=== PATIENT | male | born 1960 | race African-American/Black ===

== ENCOUNTER 2020-01-30 22:32 | Inpatient (IN) | payer SELFPAY ==
[~2020-01-30] VITALS: Ht 152.4 cm; Wt 84.4 kg
[2020-01-30] MEDS ORDERED: FUROSEMIDE 40MG/4ML VIAL IV ONE (22:45)
[2020-01-30] MEDS ORDERED: NITROGLYCERIN 50MG PREMIX 250 ML IV ONE (23:01)
[2020-01-30] MEDS: NITROGLYCERIN 0.4MG TABLET SL SL PRN ×3 (23:04→23:17)
[2020-01-30] MEDS ORDERED: ONDANSETRON HCL 4MG/2ML INJ IV STA (23:14)
[2020-01-30] MEDS ORDERED: MORPHINE SULFATE 4 MG/ML CPJ (NOT FOR IM USE) IV STA (23:14)
[2020-01-30 23:25] LABS: BASOPHILS % 0.7 % (0.0-2.0); EOSINOPHILS % 1.1 % (0.0-5.0); HEMATOCRIT. 52.2 % (42.0-52.0); HEMOGLOBIN. 16.5 g/dL (14.0-18.0); LYMPHOCYTES % 17.3 % (20.0-50.0); MEAN CORPUSCULAR HEMOGLOBIN 26.9 pg (28.0-32.0); MEAN CORPUSCULAR VOLUME 85.1 fL (80.0-94.0); MEAN PLATELET VOLUME 8.9 fl (7.4-10.4); MONOCYTES % 9.9 % (2.0-8.0); PLATELET 166 x1000/uL (130-400); RED BLOOD CELL COUNT 6.14 mill/uL (4.7-6.1)
[2020-01-30 23:29] LABS: INR 1.5; PROTHROMBIN TIME 16.5 sec (9.6-11.0)
[2020-01-31] VITALS (11 sets, daily range): BP systolic 116–134; BP diastolic 32–99
[2020-01-31 00:18] LABS: *AMPHETAMINES SCREEN URINE NEGATIVE (NEGATIVE); *BARBITURATES SCREEN URINE NEGATIVE (NEGATIVE); *BENZODIAZEPINES SCREEN URINE NEGATIVE (NEGATIVE)
[2020-01-31 00:19] LABS: *COCAINE SCREEN URINE NEGATIVE (NEGATIVE); CANNABINOID URINE SCREEN NEGATIVE (NEGATIVE); METHADONE URINE SCREEN NEGATIVE (NEGATIVE); OPIATES URINE SCREEN NEGATIVE (NEGATIVE); PHENCYCLIDINE URINE SCREEN NEGATIVE (NEGATIVE)
[2020-01-31 01:04] LABS: CHLORIDE 107 mEq/L (98-107)
[2020-01-31] MEDS ORDERED: ASPIRIN 325MG EC TABLET PO ONE (02:45)
[2020-01-31] MEDS ORDERED: CLONIDINE 0.1MG TABLET PO PRN (09:30)
[2020-01-31] MEDS ORDERED: CEFTRIAXONE 1 G PREMIX 50 ML IV SCH (09:30)
[2020-01-31] MEDS ORDERED: ENOXAPARIN 40MG/0.4ML SYR SUBCUT SCH ×2 (09:45→11:15)
[2020-01-31] MEDS: BENZONATATE 100MG CAPSULE PO PRN ×2 (10:56→17:18)
[2020-01-31] MEDS: AZITHROMYCIN 500 MG TABLET PO SCH (10:56)
[2020-01-31] MEDS: FUROSEMIDE 40MG/4ML VIAL IVP SCH ×2 (11:00→17:16)
[2020-01-31] MEDS: LEVOFLOXACIN 500MG PREMIX 100 ML IV SCH (11:00)
[2020-01-31 11:15] LABS: HEPATITIS B SURFACE ANTIGEN NEGATIVE
[2020-01-31 11:44] LABS: HEPATITIS A AB IGM NEGATIVE (NEGATIVE)
[2020-01-31] MEDS: HYDROCODONE/ACETAMINOPHEN 5/325MG TABLET PO PRN ×2 (11:46→17:17)
[2020-01-31] MEDS: CLONIDINE 0.1MG TABLET PO SCH ×2 (14:00→17:18)
[2020-01-31] MEDS: ENOXAPARIN 80MG/0.8ML SYR SUBCUT SCH (23:01)
[2020-02-01] VITALS: BP 128/83
[2020-02-01 04:00] VITALS: BP 107/78
[2020-02-01] MEDS: CLONIDINE 0.1MG TABLET PO SCH (06:00)
[2020-02-01] MEDS: FUROSEMIDE 40MG/4ML VIAL IVP SCH (06:37)
[2020-02-01 06:56] LABS: HEMATOCRIT. 42.5 % (42.0-52.0); MEAN CORPUSCULAR HEMOGLOBIN 27.1 pg (28.0-32.0); MEAN CORPUSCULAR VOLUME 82.5 fL (80.0-94.0); MEAN PLATELET VOLUME 8.8 fl (7.4-10.4); PLATELET 164 x1000/uL (130-400); RED BLOOD CELL COUNT 5.15 mill/uL (4.7-6.1); RED CELL DISTRIBUTION WIDTH 16.2 % (11.6-14.6)
[2020-02-01 08:00] VITALS: BP 96/65
[2020-02-01] MEDS ORDERED: ASPIRIN 81MG TABLET PO SCH (09:00)
[2020-02-01] MEDS ORDERED: ENOXAPARIN 40MG/0.4ML SYR SUBCUT SCH (09:00)
[2020-02-01] MEDS: AZITHROMYCIN 500 MG TABLET PO SCH (09:15)
[2020-02-01] MEDS: ENOXAPARIN 80MG/0.8ML SYR SUBCUT SCH ×2 (09:16→21:46)
[2020-02-01 09:25] LABS: PLATELET ESTIMATE NORMAL
[2020-02-01 12:00] VITALS: BP 105/77
[2020-02-01] MEDS: LEVOFLOXACIN 500MG PREMIX 100 ML IV SCH (12:59)
[2020-02-01] MEDS ORDERED: IPRATROPIUM/ALBUTEROL 0.5-3(2.5)MG/3ML NEB HHN PRN (15:45)
[2020-02-01 16:00] VITALS: BP 113/86
[2020-02-01 20:00] VITALS: BP 110/89
[2020-02-02] VITALS: BP 108/84
[2020-02-02 04:00] VITALS: BP 102/79
[2020-02-02 06:50] LABS: HEMATOCRIT. 41.8 % (42.0-52.0); HEMOGLOBIN. 13.8 g/dL (14.0-18.0); MEAN CORPUSCULAR HEMOGLOBIN 26.8 pg (28.0-32.0); MEAN CORPUSCULAR VOLUME 81.4 fL (80.0-94.0); MEAN PLATELET VOLUME 8.9 fl (7.4-10.4); PLATELET 161 x1000/uL (130-400); RED BLOOD CELL COUNT 5.14 mill/uL (4.7-6.1); RED CELL DISTRIBUTION WIDTH 16.3 % (11.6-14.6)
[2020-02-02 07:04] LABS: CHLORIDE 103 mEq/L (98-107)
[2020-02-02 08:00] VITALS: BP 126/84
[2020-02-02] MEDS ORDERED: FUROSEMIDE 40MG/4ML VIAL IVP SCH (08:00)
[2020-02-02] MEDS ORDERED: AMLODIPINE 2.5MG TABLET PO SCH (09:00)
[2020-02-02 11:04] LABS: PLATELET ESTIMATE NORMAL
[2020-02-02 11:56] VITALS: BP 118/79
[2020-02-02] MEDS ORDERED: POTASSIUM CHLORIDE 20MEQ TABLET SR PO NR (12:00)
[2020-02-02] MEDS: LEVOFLOXACIN 500MG PREMIX 100 ML IV SCH (12:33)
[2020-02-02] MEDS: ENOXAPARIN 80MG/0.8ML SYR SUBCUT SCH ×2 (12:33→21:47)
[2020-02-02] MEDS: SPIRONOLACTONE 25MG TABLET PO SCH (15:22)
[2020-02-02 16:00] VITALS: BP 103/82
[2020-02-02] MEDS: FUROSEMIDE 40MG/4ML VIAL IVP SCH (17:30)
[2020-02-02] MEDS: CARVEDILOL 3.125 MG TABLET PO SCH (21:46)
[2020-02-02 21:52] VITALS: BP 110/85
[2020-02-02] MEDS ORDERED: CEFAZOLIN 2,000 MG in DEXT 5% WATER 100 ML IV SCH (22:30)
[2020-02-02] MEDS ORDERED: DIPHENHYDRAMINE 50MG/ML VIAL IV PRN (22:30)
[2020-02-03] VITALS: BP 115/87
[2020-02-03 04:00] VITALS: BP 118/79
[2020-02-03] MEDS: FUROSEMIDE 40MG/4ML VIAL IVP SCH ×2 (06:38→17:00)
[2020-02-03 06:42] LABS: HEMATOCRIT. 38.6 % (42.0-52.0); HEMOGLOBIN. 12.9 g/dL (14.0-18.0); MEAN CORPUSCULAR HEMOGLOBIN 26.8 pg (28.0-32.0); MEAN CORPUSCULAR VOLUME 80.3 fL (80.0-94.0); PLATELET 162 x1000/uL (130-400); RED BLOOD CELL COUNT 4.81 mill/uL (4.7-6.1); RED CELL DISTRIBUTION WIDTH 16.3 % (11.6-14.6)
[2020-02-03 06:44] LABS: CHLORIDE 101 mEq/L (98-107)
[2020-02-03 08:25] VITALS: BP 114/85
[2020-02-03] MEDS: ENOXAPARIN 80MG/0.8ML SYR SUBCUT SCH ×2 (08:27→21:34)
[2020-02-03] MEDS: CARVEDILOL 3.125 MG TABLET PO SCH ×2 (08:28→21:36)
[2020-02-03] MEDS: LISINOPRIL 5MG TABLET PO SCH (08:28)
[2020-02-03] MEDS: SPIRONOLACTONE 25MG TABLET PO SCH (08:28)
[2020-02-03] MEDS ORDERED: POTASSIUM CHLORIDE 20MEQ TABLET SR PO NR (10:00)
[2020-02-03] MEDS ORDERED: LEVOFLOXACIN 500MG TABLET PO SCH (11:00)
[2020-02-03] MEDS: LEVOFLOXACIN 500MG TABLET PO SCH (11:04)
[2020-02-03 12:00] VITALS: BP 114/86
[2020-02-03 14:11] LABS: NUCLEATED RED BLOOD CELLS 2 /100 WBC; PLATELET ESTIMATE NORMAL
[2020-02-03 16:00] VITALS: BP 101/81
[2020-02-03] MEDS: HYDROCODONE/ACETAMINOPHEN 5/325MG TABLET PO PRN (17:11)
[2020-02-03 20:00] VITALS: BP 115/85
[2020-02-04] VITALS: BP 103/80
[2020-02-04 03:55] VITALS: BP 109/83
[2020-02-04 06:25] VITALS: BP_SYST 102; BP_SYST 111; BP_DIAS 75; BP_DIAS 82
[2020-02-04] MEDS: FUROSEMIDE 40MG/4ML VIAL IVP SCH (06:29)
[2020-02-04 06:33] LABS: HEMATOCRIT. 39.9 % (42.0-52.0); HEMOGLOBIN. 13.3 g/dL (14.0-18.0); MEAN CORPUSCULAR HEMOGLOBIN 26.7 pg (28.0-32.0); MEAN CORPUSCULAR VOLUME 80.1 fL (80.0-94.0); MEAN PLATELET VOLUME 8.8 fl (7.4-10.4); PLATELET 184 x1000/uL (130-400); RED BLOOD CELL COUNT 4.98 mill/uL (4.7-6.1)
[2020-02-04 07:30] LABS: CHLORIDE 98 mEq/L (98-107)
[2020-02-04 08:00] VITALS: BP 103/77
[2020-02-04] MEDS: ENOXAPARIN 80MG/0.8ML SYR SUBCUT SCH (08:30)
[2020-02-04] MEDS: LISINOPRIL 5MG TABLET PO SCH (08:31)
[2020-02-04] MEDS: CARVEDILOL 3.125 MG TABLET PO SCH (08:32)
[2020-02-04] MEDS: SPIRONOLACTONE 25MG TABLET PO SCH (08:32)
[2020-02-04] MEDS ORDERED: POTASSIUM CHLORIDE 10MEQ TABLET SR PO SCH (10:30)
[2020-02-04] MEDS: LEVOFLOXACIN 500MG TABLET PO SCH (11:11)
[2020-02-04 12:00] VITALS: BP 119/91
[2020-02-04] MEDS ORDERED: ALBU18HF2 IH (12:02)
[2020-02-04] MEDS ORDERED: COR3 PO (12:02)
[2020-02-04] MEDS ORDERED: LISI-186 PO (12:02)
[2020-02-04] MEDS ORDERED: FURO40TA5 PO (12:02)
[2020-02-04] MEDS ORDERED: KDUR10 PO (12:02)
[2020-02-04] MEDS ORDERED: SPIR25TA PO (12:02)
[2020-02-04 16:36] LABS: NUCLEATED RED BLOOD CELLS 3 /100 WBC; PLATELET ESTIMATE NORMAL
[2020-02-04 17:46] VITALS: BP 88/68
[2020-02-04] MEDS ORDERED: FUROSEMIDE 40MG TABLET PO SCH (21:00)
[2020-02-05] MEDS ORDERED: ENOXAPARIN 40MG/0.4ML SYR SUBCUT SCH (09:00)
== END 2020-02-04 22:00 | disposition home or self-care (01) | DRG 720 ==
LOC: ER 22:32 → MICUSO 01-31 01:19 → EDBEDREQ 01-31 01:24 → EDBEDREQTM 01-31 01:24 → EDBEDREQDT 01-31 01:24 → EDBEDREQSVC 01-31 01:24 → ENRESERV 01-31 07:36 → 5WST 01-31 20:00
PROVIDERS: ADMIT Internal Medicine Nephrology; ATTEND Internal Medicine Nephrology
DX: A41.9 Sepsis, unspecified organism (principal); J96.01 Acute respiratory failure with hypoxia; E43 Unspecified severe protein-calorie malnutrition; I50.41 Acute combined systolic (congestive) and diastolic (congestive) heart failure; E87.2 Acidosis; D68.9 Coagulation defect, unspecified; J18.9 Pneumonia, unspecified organism; I11.0 Hypertensive heart disease with heart failure; I27.81 Cor pulmonale (chronic); I42.9 Cardiomyopathy, unspecified; B19.20 Unspecified viral hepatitis C without hepatic coma; F14.90 Cocaine use, unspecified, uncomplicated; F17.210 Nicotine dependence, cigarettes, uncomplicated; I49.3 Ventricular premature depolarization; Z20.828 Contact with and (suspected) exposure to other viral communicable diseases; I36.1 Nonrheumatic tricuspid (valve) insufficiency; J44.0 Chronic obstructive pulmonary disease with (acute) lower respiratory infection; Z60.2 Problems related to living alone; R04.2 Hemoptysis; Z79.899 Other long term (current) drug therapy; Z91.19 Patient's noncompliance with other medical treatment and regimen; Z59.0 Homelessness; Z88.0 Allergy status to penicillin; Z68.36 Body mass index [BMI] 36.0-36.9, adult; Z71.89 Other specified counseling; Z71.6 Tobacco abuse counseling
CPT/HCPCS: 36415; 71045; 78580; 80048; 80053; 80305; 82962; 83605; 83735; 83880; 84145; 84484; 85025; 85379; 86705; 86709; 86803; 87077; 87186; 87340; 87635; 93005; 93306; 93970; 97162; 97166; 97530; 99291; J1650; J1940; J1956; J2270; J2405; J3490

== ENCOUNTER 2020-05-02 13:13 | Inpatient (IN) | payer MEDICAID ==
[~2020-05-02] VITALS: Ht 170.2 cm; Wt 51.7 kg
[~2020-05-02 13:13] MED LIST: ALBU18HF2 IH; COR3 PO; FURO40TA5 PO; KDUR10 PO; LISI-186 PO; SPIR25TA PO
[2020-05-02] MEDS ORDERED: ALBUTEROL (0.083%) 2.5MG/3ML NEB HHN STA (15:57)
[2020-05-02] MEDS ORDERED: METHYLPREDNISOLONE SOD SUCC 125 MG/2 ML VIAL IV STA (15:57)
[2020-05-02] MEDS ORDERED: IPRATROPIUM BROMIDE (0.02%) 0.5MG/2.5ML NEB HHN STA (15:57)
[2020-05-02] MEDS ORDERED: LORAZEPAM 1MG TABLET PO ONE (16:00)
[2020-05-02 17:26] LABS: CHLORIDE 109 mEq/L (98-107)
[2020-05-02 17:32] LABS: ETHANOL BLOOD < 10 mg/dL
[2020-05-02 17:45] LABS: BASOPHILS % 0.5 % (0.0-2.0); EOSINOPHILS % 0.4 % (0.0-5.0); HEMATOCRIT. 48.6 % (42.0-52.0); HEMOGLOBIN. 14.8 g/dL (14.0-18.0); LYMPHOCYTES % 32.6 % (20.0-50.0); MEAN CORPUSCULAR HEMOGLOBIN 26.8 pg (28.0-32.0); MEAN CORPUSCULAR VOLUME 88.2 fL (80.0-94.0); MEAN PLATELET VOLUME 8.8 fl (7.4-10.4); MONOCYTES % 14.8 % (2.0-8.0); NEUTROPHILS % 51.7 % (40.0-76.0); PLATELET 183 x1000/uL (130-400); RED BLOOD CELL COUNT 5.51 mill/uL (4.7-6.1); RED CELL DISTRIBUTION WIDTH 22.9 % (11.6-14.6)
[2020-05-02] MEDS ORDERED: FUROSEMIDE 40MG/4ML VIAL IV ONE (17:45)
[2020-05-02] MEDS ORDERED: ASPIRIN 81MG TABLET PO ONE (17:45)
[2020-05-02] MEDS ORDERED: LORAZEPAM 2MG/ML CPJ IV ONE (17:45)
[2020-05-02 18:46] LABS: PLATELET ESTIMATE NORMAL
[2020-05-02] MEDS ORDERED: DEXTROSE 50% WATER 50ML SYRINGE IV ONE ×2 (19:15→19:45)
[2020-05-02] MEDS ORDERED: CALCIUM GLUCONATE 1,000 MG in DEXT 5% WATER 100 ML IV ONE (19:45)
[2020-05-02] MEDS ORDERED: INSULIN REGULAR (HUMULIN R) 300UNITS/3ML IV ONE (19:45)
[2020-05-02 19:46] LABS: BG BASE EXCESS -8.9 mmol/L (-2.0-2.0); BG DEOXYHEMOGLOBIN 0.3 % (0.0-5.0); BG FRACTION INSPIRED OXYGEN 100%; BG HCO3 ACT 16.5 mmol/L (22.0-26.0); BG METHEMOGLOBIN 0.3 % (0.0-1.5); BG OXYGEN SATURATION 99.7 % (92.0-98.5); BG OXYHEMOGLOBIN 98.4 % (94.0-97.0); BG PCO2 34.1 mmHg (35.0-45.0); BG PH 7.302 (7.350-7.450); BG SAMPLE SITE RIGHT RADIAL; BG TOTAL HEMOGLOBIN 14.1 g/dL (12.0-18.0); BG VENT MODE MASK - NRB
[2020-05-02] MEDS ORDERED: VECURONIUM BROMIDE 10 MG/VIAL IV ONE ×2 (20:00→20:15)
[2020-05-02] MEDS ORDERED: ETOMIDATE 2MG/ML 10ML VIAL IV ONE ×2 (20:00→20:15)
[2020-05-02] MEDS ORDERED: SODIUM CHLORIDE 0.9% 10ML VIAL ONE (20:00)
[2020-05-02] MEDS ORDERED: MIDAZOLAM HCL 50 MG in DEXTROSE 5% WATER 40 ML IV ONE (20:15)
[2020-05-02] MEDS ORDERED: MIDAZOLAM HCL 2 MG/2 ML VIAL IV ONE (20:15)
[2020-05-02] MEDS ORDERED: MIDAZOLAM HCL 100 MG in DEXT 5% WATER 80 ML IV PRN (20:30)
[2020-05-02] MEDS ORDERED: DEXT 5%/0.45% NACL 1000ML 1,000 ML IV SCH (20:45)
[2020-05-02] MEDS ORDERED: ACETAMINOPHEN 325MG TABLET PO PRN (20:45)
[2020-05-02] MEDS ORDERED: ONDANSETRON HCL 4MG/2ML INJ IV PRN (20:45)
[2020-05-02] MEDS: CARVEDILOL 6.25 MG TABLET PO SCH (21:00)
[2020-05-02] MEDS: ENOXAPARIN 40MG/0.4ML SYR SUBCUT SCH (21:22)
[2020-05-02 21:37] LABS: BG BASE EXCESS -9.6 mmol/L (-2.0-2.0); BG CARBOXYHEMOGLOBIN 0.5 % (0.5-1.5); BG DEOXYHEMOGLOBIN 0.2 % (0.0-5.0); BG FRACTION INSPIRED OXYGEN 100; BG HCO3 ACT 16.8 mmol/L (22.0-26.0); BG METHEMOGLOBIN 0.4 % (0.0-1.5); BG OXYGEN SATURATION 99.8 % (92.0-98.5); BG OXYHEMOGLOBIN 98.9 % (94.0-97.0); BG PCO2 38.2 mmHg (35.0-45.0); BG PO2 352.1 mmHg (75.0-100.0); BG SAMPLE SITE RIGHT RADIAL; BG TIDAL VOLUME(mL) 500 mL; BG TOTAL HEMOGLOBIN 13.1 g/dL (12.0-18.0); BG VENT MODE VENT - A/C; BG VENT RATE 16 set
[2020-05-02 22:08] LABS: *AMPHETAMINES SCREEN URINE NEGATIVE (NEGATIVE); *BARBITURATES SCREEN URINE NEGATIVE (NEGATIVE); *BENZODIAZEPINES SCREEN URINE NEGATIVE (NEGATIVE)
[2020-05-02 22:09] LABS: *COCAINE SCREEN URINE NEGATIVE (NEGATIVE); CANNABINOID URINE SCREEN PRESUMTIVE POSITIVE (NEGATIVE); METHADONE URINE SCREEN NEGATIVE (NEGATIVE); OPIATES URINE SCREEN NEGATIVE (NEGATIVE); PHENCYCLIDINE URINE SCREEN NEGATIVE (NEGATIVE)
[2020-05-02] MEDS ORDERED: NITROGLYCERIN 0.1MG/HR PATCH TOP ONE (22:15)
[2020-05-03] VITALS (7 sets, daily range): BP systolic 154–167; BP diastolic 116–122
[2020-05-03 04:24] LABS: CHLORIDE 107 mEq/L (98-107)
[2020-05-03 04:35] LABS: EOSINOPHILS % 0.1 % (0.0-5.0); HEMATOCRIT. 42.8 % (42.0-52.0); HEMOGLOBIN. 13.5 g/dL (14.0-18.0); LYMPHOCYTES % 13.6 % (20.0-50.0); MEAN CORPUSCULAR HEMOGLOBIN 26.5 pg (28.0-32.0); MEAN PLATELET VOLUME 8.9 fl (7.4-10.4); MONOCYTES % 8.7 % (2.0-8.0); NEUTROPHILS % 76.6 % (40.0-76.0); PLATELET 226 x1000/uL (130-400); RED CELL DISTRIBUTION WIDTH 22.4 % (11.6-14.6)
[2020-05-03] MEDS: HYDRALAZINE 20MG/ML VIAL IV PRN (05:32)
[2020-05-03] MEDS: FUROSEMIDE 40MG/4ML VIAL IVP SCH ×2 (07:15→17:15)
[2020-05-03] MEDS ORDERED: LOSARTAN POTASSIUM 25 MG TABLET PO SCH (09:00)
[2020-05-03] MEDS: PANTOPRAZOLE SODIUM 40 MG/VIAL IV SCH (09:44)
[2020-05-03] MEDS: CARVEDILOL 6.25 MG TABLET PO SCH ×2 (09:44→23:39)
[2020-05-03] MEDS ORDERED: CLONIDINE 0.1MG TABLET PO PRN (11:15)
[2020-05-03] MEDS ORDERED: FENTANYL 1,000 MCG in SODIUM CHLORIDE 0.9% 100 ML IV PRN (11:30)
[2020-05-03] MEDS: AMLODIPINE 10MG TABLET PO SCH (11:47)
[2020-05-03] MEDS ORDERED: FUROSEMIDE 40MG/4ML VIAL IVP SCH (14:30)
[2020-05-03] MEDS ORDERED: CEFTRIAXONE 1 G PREMIX 50 ML IV SCH (14:45)
[2020-05-03] MEDS: AZITHROMYCIN 500 MG TABLET PO SCH (15:00)
[2020-05-03] MEDS: LEVOFLOXACIN 750MG PREMIX 150 ML IV SCH (15:00)
[2020-05-03] MEDS: DEXTROSE 5% IV PRN (17:57)
[2020-05-03] MEDS: WATER IV PRN (17:57)
[2020-05-03] MEDS: MIDAZOLAM HCL IV PRN (17:57)
[2020-05-03] MEDS ORDERED: LOSARTAN POTASSIUM 50 MG TABLET PO SCH (21:00)
[2020-05-03] MEDS: ENOXAPARIN 40MG/0.4ML SYR SUBCUT SCH (22:20)
[2020-05-03] MEDS ORDERED: DEXTROSE 50% WATER 50ML SYRINGE IV PRN (23:30)
[2020-05-03] MEDS: LOSARTAN POTASSIUM 50 MG TABLET PO SCH (23:39)
[2020-05-04] VITALS (98 sets, daily range): BP systolic 98–158; BP diastolic 54–125
[2020-05-04] MEDS: HYDRALAZINE 20MG/ML VIAL IV PRN (01:19)
[2020-05-04] MEDS: WATER IV PRN (02:54)
[2020-05-04] MEDS: MIDAZOLAM HCL IV PRN (02:54)
[2020-05-04] MEDS: DEXTROSE 5% IV PRN (02:54)
[2020-05-04 04:59] LABS: BASOPHILS % 0.6 % (0.0-2.0); EOSINOPHILS % 0.1 % (0.0-5.0); HEMATOCRIT. 38.7 % (42.0-52.0); HEMOGLOBIN. 12.7 g/dL (14.0-18.0); LYMPHOCYTES % 11.9 % (20.0-50.0); MEAN CORPUSCULAR HEMOGLOBIN 26.7 pg (28.0-32.0); MEAN CORPUSCULAR VOLUME 81.8 fL (80.0-94.0); MEAN PLATELET VOLUME 8.5 fl (7.4-10.4); MONOCYTES % 9.2 % (2.0-8.0); NEUTROPHILS % 78.2 % (40.0-76.0); PLATELET 251 x1000/uL (130-400); RED BLOOD CELL COUNT 4.74 mill/uL (4.7-6.1); RED CELL DISTRIBUTION WIDTH 21.7 % (11.6-14.6)
[2020-05-04 05:13] LABS: CHLORIDE 102 mEq/L (98-107)
[2020-05-04] MEDS ORDERED: BLOOD SUGAR DIAGNOSTIC STRIP TEST SCH (06:30)
[2020-05-04] MEDS: POTASSIUM CHLORIDE 20MEQ/PACKET NG SCH ×2 (08:15→16:50)
[2020-05-04] MEDS: FUROSEMIDE 40MG/4ML VIAL IVP SCH ×2 (08:15→16:50)
[2020-05-04] MEDS: LOSARTAN POTASSIUM 50 MG TABLET PO SCH ×2 (08:15→20:40)
[2020-05-04] MEDS: PANTOPRAZOLE SODIUM 40 MG/VIAL IV SCH (08:15)
[2020-05-04] MEDS: AZITHROMYCIN 500 MG TABLET PO SCH (08:16)
[2020-05-04] MEDS: CARVEDILOL 6.25 MG TABLET PO SCH ×2 (08:17→20:39)
[2020-05-04] MEDS: AMLODIPINE 10MG TABLET PO SCH (09:00)
[2020-05-04] MEDS: LEVOFLOXACIN 750MG PREMIX 150 ML IV SCH (15:10)
[2020-05-04 15:37] LABS: BG BASE EXCESS 6.7 mmol/L (-2.0-2.0); BG CARBOXYHEMOGLOBIN 0.8 % (0.5-1.5); BG FRACTION INSPIRED OXYGEN 50; BG HCO3 ACT 29.1 mmol/L (22.0-26.0); BG METHEMOGLOBIN 0.3 % (0.0-1.5); BG OXYHEMOGLOBIN 96.9 % (94.0-97.0); BG PCO2 34.7 mmHg (35.0-45.0); BG PH 7.542 (7.350-7.450); BG PO2 95.2 mmHg (75.0-100.0); BG SAMPLE SITE RIGHT RADIAL; BG TIDAL VOLUME(mL) 500 mL; BG TOTAL HEMOGLOBIN 14.2 g/dL (12.0-18.0); BG VENT MODE VENT - A/C; BG VENT RATE 16 set
[2020-05-04] MEDS: ENOXAPARIN 40MG/0.4ML SYR SUBCUT SCH (20:40)
[2020-05-04] MEDS: IPRATROPIUM/ALBUTEROL 0.5-3(2.5)MG/3ML NEB HHN SCH (20:54)
[2020-05-05] VITALS (41 sets, daily range): BP systolic 99–144; BP diastolic 65–96
[2020-05-05] MEDS: IPRATROPIUM/ALBUTEROL 0.5-3(2.5)MG/3ML NEB HHN SCH ×6 (01:11→20:37)
[2020-05-05] MEDS: LORAZEPAM 2MG/ML CPJ IV PRN ×3 (01:15→19:46)
[2020-05-05 06:36] LABS: BASOPHILS % 0.4 % (0.0-2.0); EOSINOPHILS % 0.4 % (0.0-5.0); HEMATOCRIT. 42.6 % (42.0-52.0); HEMOGLOBIN. 13.7 g/dL (14.0-18.0); LYMPHOCYTES % 14.3 % (20.0-50.0); MEAN CORPUSCULAR HEMOGLOBIN 26.5 pg (28.0-32.0); MEAN CORPUSCULAR VOLUME 82.3 fL (80.0-94.0); MEAN PLATELET VOLUME 8.8 fl (7.4-10.4); MONOCYTES % 11.9 % (2.0-8.0); PLATELET 251 x1000/uL (130-400); RED BLOOD CELL COUNT 5.18 mill/uL (4.7-6.1); RED CELL DISTRIBUTION WIDTH 21.6 % (11.6-14.6)
[2020-05-05 06:40] LABS: CHLORIDE 98 mEq/L (98-107)
[2020-05-05] MEDS ORDERED: LOSA25TA26 MT (07:39)
[2020-05-05] MEDS ORDERED: FURO-151 MT (07:39)
[2020-05-05] MEDS ORDERED: WARF2.5T83 MT (07:39)
[2020-05-05] MEDS ORDERED: ASPI-1497 MT (07:39)
[2020-05-05] MEDS ORDERED: LEVO50TA8 MT (07:39)
[2020-05-05] MEDS ORDERED: THIA50TA10 PO (07:39)
[2020-05-05] MEDS ORDERED: METO-411 MT (07:39)
[2020-05-05] MEDS: FUROSEMIDE 40MG/4ML VIAL IVP SCH ×2 (07:48→16:31)
[2020-05-05] MEDS: PANTOPRAZOLE SODIUM 40 MG/VIAL IV SCH (08:00)
[2020-05-05] MEDS: POTASSIUM CHLORIDE 20MEQ/PACKET NG SCH ×2 (08:00→16:31)
[2020-05-05] MEDS: AMLODIPINE 10MG TABLET PO SCH (08:01)
[2020-05-05] MEDS: CARVEDILOL 6.25 MG TABLET PO SCH ×2 (08:01→21:20)
[2020-05-05] MEDS: AZITHROMYCIN 500 MG TABLET PO SCH (08:03)
[2020-05-05] MEDS: LOSARTAN POTASSIUM 50 MG TABLET PO SCH ×2 (08:03→21:21)
[2020-05-05 09:54] LABS: BG BASE EXCESS 4.2 mmol/L (-2.0-2.0); BG CARBOXYHEMOGLOBIN 1.1 % (0.5-1.5); BG FRACTION INSPIRED OXYGEN 50; BG METHEMOGLOBIN 0.4 % (0.0-1.5); BG OXYHEMOGLOBIN 96.5 % (94.0-97.0); BG PCO2 39.1 mmHg (35.0-45.0); BG PH 7.473 (7.350-7.450); BG PO2 102.3 mmHg (75.0-100.0); BG SAMPLE SITE RIGHT RADIAL; BG TIDAL VOLUME(mL) 500 mL; BG TOTAL HEMOGLOBIN 15.2 g/dL (12.0-18.0); BG VENT MODE VENT - A/C; BG VENT RATE 12 set
[2020-05-05] MEDS ORDERED: ACETAZOLAMIDE SODIUM 500MG/VIAL IV NR (12:00)
[2020-05-05 12:08] LABS: BG BASE EXCESS 8.6 mmol/L (-2.0-2.0); BG CARBOXYHEMOGLOBIN 0.7 % (0.5-1.5); BG DEOXYHEMOGLOBIN 4.2 % (0.0-5.0); BG FRACTION INSPIRED OXYGEN 40; BG HCO3 ACT 32.6 mmol/L (22.0-26.0); BG METHEMOGLOBIN 0.3 % (0.0-1.5); BG OXYGEN SATURATION 95.8 % (92.0-98.5); BG OXYHEMOGLOBIN 94.8 % (94.0-97.0); BG PCO2 42.3 mmHg (35.0-45.0); BG PH 7.505 (7.350-7.450); BG PO2 78.7 mmHg (75.0-100.0); BG PRESSURE SUPPORT 8; BG SAMPLE SITE RIGHT RADIAL; BG TOTAL HEMOGLOBIN 15.7 g/dL (12.0-18.0); BG VENT MODE VENT - CPAP
[2020-05-05] MEDS: LEVOFLOXACIN 750MG PREMIX 150 ML IV SCH (15:25)
[2020-05-05] MEDS: ENOXAPARIN 40MG/0.4ML SYR SUBCUT SCH (20:03)
[2020-05-06] VITALS (18 sets, daily range): BP systolic 91–134; BP diastolic 47–88
[2020-05-06] MEDS: IPRATROPIUM/ALBUTEROL 0.5-3(2.5)MG/3ML NEB HHN SCH ×6 (00:31→21:40)
[2020-05-06 05:50] LABS: CHLORIDE 98 mEq/L (98-107)
[2020-05-06 06:01] LABS: BASOPHILS % 0.8 % (0.0-2.0); EOSINOPHILS % 1.6 % (0.0-5.0); HEMATOCRIT. 47.3 % (42.0-52.0); HEMOGLOBIN. 15.3 g/dL (14.0-18.0); LYMPHOCYTES % 16.1 % (20.0-50.0); MEAN CORPUSCULAR HEMOGLOBIN 26.7 pg (28.0-32.0); MEAN CORPUSCULAR VOLUME 82.5 fL (80.0-94.0); MONOCYTES % 12.5 % (2.0-8.0); PLATELET 253 x1000/uL (130-400); RED BLOOD CELL COUNT 5.73 mill/uL (4.7-6.1); RED CELL DISTRIBUTION WIDTH 21.5 % (11.6-14.6)
[2020-05-06] MEDS: FUROSEMIDE 40MG/4ML VIAL IVP SCH ×2 (06:15→18:04)
[2020-05-06] MEDS: PANTOPRAZOLE SODIUM 40 MG/VIAL IV SCH (08:03)
[2020-05-06] MEDS: POTASSIUM CHLORIDE 20MEQ/PACKET NG SCH (08:03)
[2020-05-06] MEDS: AMLODIPINE 10MG TABLET PO SCH (08:06)
[2020-05-06] MEDS: LOSARTAN POTASSIUM 50 MG TABLET PO SCH (08:06)
[2020-05-06] MEDS: CARVEDILOL 6.25 MG TABLET PO SCH ×2 (08:06→20:37)
[2020-05-06] MEDS: AZITHROMYCIN 500 MG TABLET PO SCH (08:06)
[2020-05-06] MEDS: LEVOFLOXACIN 750MG PREMIX 150 ML IV SCH (16:07)
[2020-05-06] MEDS: ENOXAPARIN 40MG/0.4ML SYR SUBCUT SCH (20:39)
[2020-05-06] MEDS: LOSARTAN POTASSIUM 25 MG TABLET PO SCH (20:40)
[2020-05-07] VITALS: BP 104/76
[2020-05-07] MEDS: IPRATROPIUM/ALBUTEROL 0.5-3(2.5)MG/3ML NEB HHN SCH ×6 (01:47→21:42)
[2020-05-07] MEDS ORDERED: PNEUMOCOCCAL 23-VAL P-SAC VAC 0.5 ML IM ONE (03:00)
[2020-05-07 04:00] VITALS: BP 114/77
[2020-05-07] MEDS: FUROSEMIDE 40MG/4ML VIAL IVP SCH ×2 (06:24→18:11)
[2020-05-07 06:49] LABS: BASOPHILS % 0.6 % (0.0-2.0); EOSINOPHILS % 4.4 % (0.0-5.0); HEMATOCRIT. 49.8 % (42.0-52.0); HEMOGLOBIN. 16.2 g/dL (14.0-18.0); LYMPHOCYTES % 21.8 % (20.0-50.0); MEAN CORPUSCULAR HEMOGLOBIN 26.6 pg (28.0-32.0); MEAN CORPUSCULAR VOLUME 81.7 fL (80.0-94.0); MEAN PLATELET VOLUME 7.9 fl (7.4-10.4); MONOCYTES % 14.2 % (2.0-8.0); PLATELET 266 x1000/uL (130-400); RED BLOOD CELL COUNT 6.09 mill/uL (4.7-6.1)
[2020-05-07 07:40] LABS: CHLORIDE 94 mEq/L (98-107)
[2020-05-07 08:00] VITALS: BP 98/77
[2020-05-07] MEDS: LOSARTAN POTASSIUM 25 MG TABLET PO SCH (09:00)
[2020-05-07] MEDS: CARVEDILOL 6.25 MG TABLET PO SCH (09:00)
[2020-05-07] MEDS: AMLODIPINE 10MG TABLET PO SCH (09:00)
[2020-05-07] MEDS: AZITHROMYCIN 500 MG TABLET PO SCH (10:28)
[2020-05-07] MEDS: PANTOPRAZOLE SODIUM 40 MG/VIAL IV SCH (10:28)
[2020-05-07] MEDS: SPIRONOLACTONE 25MG TABLET PO SCH (10:29)
[2020-05-07] MEDS ORDERED: POTASSIUM CHLORIDE 20MEQ/PACKET PO NR (11:15)
[2020-05-07 12:00] VITALS: BP 98/63
[2020-05-07] MEDS ORDERED: POTASSIUM CHLORIDE 20MEQ TABLET SR PO SCH (12:15)
[2020-05-07] MEDS: LORAZEPAM 2MG/ML CPJ IV PRN ×2 (13:58→22:47)
[2020-05-07] MEDS ORDERED: LEVOFLOXACIN 250MG TABLET PO SCH (15:00)
[2020-05-07 16:00] VITALS: BP 98/72
[2020-05-07] MEDS: POTASSIUM CHLORIDE 20MEQ/PACKET PO SCH (18:11)
[2020-05-07 20:00] VITALS: BP 106/73
[2020-05-07] MEDS: CARVEDILOL 3.125 MG TABLET PO SCH (22:46)
[2020-05-07] MEDS: ENOXAPARIN 40MG/0.4ML SYR SUBCUT SCH (22:47)
[2020-05-07] MEDS: FAMOTIDINE 20MG TABLET PO SCH (22:47)
[2020-05-08] VITALS: BP 107/75
[2020-05-08] MEDS: LORAZEPAM 2MG/ML CPJ IV PRN ×2 (03:29→23:34)
[2020-05-08 04:00] VITALS: BP 100/66
[2020-05-08] MEDS: IPRATROPIUM/ALBUTEROL 0.5-3(2.5)MG/3ML NEB HHN SCH ×5 (05:44→21:26)
[2020-05-08] MEDS: FUROSEMIDE 40MG/4ML VIAL IVP SCH (06:36)
[2020-05-08 07:47] LABS: HEMATOCRIT. 47.6 % (42.0-52.0); HEMOGLOBIN. 15.4 g/dL (14.0-18.0); MEAN CORPUSCULAR HEMOGLOBIN 26.5 pg (28.0-32.0); MEAN PLATELET VOLUME 8.2 fl (7.4-10.4); PLATELET 282 x1000/uL (130-400); RED CELL DISTRIBUTION WIDTH 21.5 % (11.6-14.6)
[2020-05-08 07:57] LABS: CHLORIDE 98 mEq/L (98-107)
[2020-05-08 08:00] VITALS: BP 124/70
[2020-05-08] MEDS: AMLODIPINE 2.5MG TABLET PO SCH (09:42)
[2020-05-08] MEDS: LOSARTAN POTASSIUM 25 MG TABLET PO SCH (09:42)
[2020-05-08] MEDS: POTASSIUM CHLORIDE 20MEQ/PACKET PO SCH ×2 (09:42→17:52)
[2020-05-08] MEDS: FAMOTIDINE 20MG TABLET PO SCH ×2 (09:42→21:55)
[2020-05-08] MEDS: CARVEDILOL 3.125 MG TABLET PO SCH ×2 (09:42→21:56)
[2020-05-08] MEDS: SPIRONOLACTONE 25MG TABLET PO SCH (09:42)
[2020-05-08 12:00] VITALS: BP 115/98
[2020-05-08] MEDS ORDERED: POTASSIUM CHLORIDE 20MEQ TABLET SR PO NR (13:15)
[2020-05-08] MEDS ORDERED: MVI, ADULT NO.1 10 ML, THIAMINE HCL 100 MG, FOLIC ACID 1 MG in DEXT 5%/0.45% NACL 1000M... IV SCH ×4 (14:00)
[2020-05-08 16:00] VITALS: BP 97/70
[2020-05-08] MEDS ORDERED: RISPERIDONE 0.5MG TABLET PO SCH (17:00)
[2020-05-08] MEDS: FUROSEMIDE 40MG TABLET PO SCH (17:52)
[2020-05-08 18:00] LABS: PLATELET ESTIMATE NORMAL
[2020-05-08 20:00] VITALS: BP 100/74
[2020-05-08] MEDS: DOCUSATE SODIUM 250MG CAPSULE PO SCH (21:55)
[2020-05-08] MEDS: CHLORDIAZEPOXIDE 25MG CAPSULE PO SCH (21:55)
[2020-05-08] MEDS: ENOXAPARIN 40MG/0.4ML SYR SUBCUT SCH (21:56)
[2020-05-09] VITALS: BP 101/66
[2020-05-09] MEDS: IPRATROPIUM/ALBUTEROL 0.5-3(2.5)MG/3ML NEB HHN SCH ×4 (00:20→12:40)
[2020-05-09 04:00] VITALS: BP 99/68
[2020-05-09] MEDS: CHLORDIAZEPOXIDE 25MG CAPSULE PO SCH ×3 (06:02→21:33)
[2020-05-09] MEDS: FUROSEMIDE 40MG TABLET PO SCH ×2 (06:17→17:15)
[2020-05-09 07:42] LABS: HEMATOCRIT. 49.8 % (42.0-52.0); HEMOGLOBIN. 16.2 g/dL (14.0-18.0); MEAN CORPUSCULAR HEMOGLOBIN 26.6 pg (28.0-32.0); MEAN PLATELET VOLUME 7.9 fl (7.4-10.4); PLATELET 301 x1000/uL (130-400); RED BLOOD CELL COUNT 6.07 mill/uL (4.7-6.1); RED CELL DISTRIBUTION WIDTH 20.8 % (11.6-14.6)
[2020-05-09 08:00] VITALS: BP 100/72
[2020-05-09 08:18] LABS: CHLORIDE 103 mEq/L (98-107)
[2020-05-09] MEDS: LOSARTAN POTASSIUM 25 MG TABLET PO SCH (09:00)
[2020-05-09] MEDS: CARVEDILOL 3.125 MG TABLET PO SCH ×2 (09:00→20:38)
[2020-05-09] MEDS: POTASSIUM CHLORIDE 20MEQ/PACKET PO SCH ×2 (09:33→17:15)
[2020-05-09] MEDS: DOCUSATE SODIUM 250MG CAPSULE PO SCH ×2 (09:34→17:15)
[2020-05-09] MEDS: SPIRONOLACTONE 25MG TABLET PO SCH (09:34)
[2020-05-09] MEDS: AMLODIPINE 2.5MG TABLET PO SCH (09:35)
[2020-05-09] MEDS: FAMOTIDINE 20MG TABLET PO SCH ×2 (09:54→21:33)
[2020-05-09 12:00] VITALS: BP 87/68
[2020-05-09] MEDS ORDERED: IPRATROPIUM/ALBUTEROL 0.5-3(2.5)MG/3ML NEB HHN PRN (15:30)
[2020-05-09 16:00] VITALS: BP 105/79
[2020-05-09 20:00] VITALS: BP_SYST 111; BP_SYST 98; BP_DIAS 48; BP_DIAS 70
[2020-05-09] MEDS: ENOXAPARIN 40MG/0.4ML SYR SUBCUT SCH (21:33)
[2020-05-09 22:40] LABS: PLATELET ESTIMATE NORMAL
[2020-05-10] VITALS: BP 97/73
[2020-05-10 04:00] VITALS: BP 105/75
[2020-05-10] MEDS: CHLORDIAZEPOXIDE 25MG CAPSULE PO SCH ×3 (06:11→20:45)
[2020-05-10] MEDS: FUROSEMIDE 40MG TABLET PO SCH ×2 (06:11→17:31)
[2020-05-10 08:00] VITALS: BP 137/89
[2020-05-10] MEDS: DOCUSATE SODIUM 250MG CAPSULE PO SCH ×2 (08:19→17:32)
[2020-05-10] MEDS: CARVEDILOL 3.125 MG TABLET PO SCH ×2 (08:19→20:45)
[2020-05-10] MEDS: LOSARTAN POTASSIUM 25 MG TABLET PO SCH (08:19)
[2020-05-10] MEDS: POTASSIUM CHLORIDE 20MEQ/PACKET PO SCH ×2 (08:19→17:31)
[2020-05-10] MEDS: AMLODIPINE 2.5MG TABLET PO SCH (08:19)
[2020-05-10] MEDS: SPIRONOLACTONE 25MG TABLET PO SCH (08:19)
[2020-05-10] MEDS: FAMOTIDINE 20MG TABLET PO SCH ×2 (08:19→20:44)
[2020-05-10] MEDS: LORAZEPAM 2MG/ML CPJ IM PRN ×2 (10:47→16:02)
[2020-05-10 12:00] VITALS: BP 108/78
[2020-05-10 16:00] VITALS: BP 94/72
[2020-05-10 20:00] VITALS: BP 112/79
[2020-05-10] MEDS: ENOXAPARIN 40MG/0.4ML SYR SUBCUT SCH (20:45)
[2020-05-11] VITALS: BP 116/90
[2020-05-11] MEDS: LORAZEPAM 2MG/ML CPJ IM PRN (01:35)
[2020-05-11 04:00] VITALS: BP 100/63
[2020-05-11] MEDS: FUROSEMIDE 40MG TABLET PO SCH ×2 (05:57→17:28)
[2020-05-11] MEDS: CHLORDIAZEPOXIDE 25MG CAPSULE PO SCH ×3 (05:57→21:53)
[2020-05-11 06:44] LABS: CHLORIDE 102 mEq/L (98-107)
[2020-05-11 07:15] LABS: HEMATOCRIT. 50.9 % (42.0-52.0); HEMOGLOBIN. 16.1 g/dL (14.0-18.0); MEAN CORPUSCULAR HEMOGLOBIN 26.2 pg (28.0-32.0); MEAN CORPUSCULAR VOLUME 82.7 fL (80.0-94.0); MEAN PLATELET VOLUME 8.2 fl (7.4-10.4); PLATELET 302 x1000/uL (130-400); RED BLOOD CELL COUNT 6.15 mill/uL (4.7-6.1); RED CELL DISTRIBUTION WIDTH 20.5 % (11.6-14.6)
[2020-05-11 08:00] VITALS: BP 103/78
[2020-05-11] MEDS: FAMOTIDINE 20MG TABLET PO SCH ×2 (09:47→21:52)
[2020-05-11] MEDS: DOCUSATE SODIUM 250MG CAPSULE PO SCH ×2 (09:47→17:28)
[2020-05-11] MEDS: CARVEDILOL 3.125 MG TABLET PO SCH ×2 (09:49→21:00)
[2020-05-11] MEDS: AMLODIPINE 2.5MG TABLET PO SCH (09:50)
[2020-05-11] MEDS: SPIRONOLACTONE 25MG TABLET PO SCH (09:50)
[2020-05-11] MEDS: POTASSIUM CHLORIDE 20MEQ/PACKET PO SCH ×2 (09:51→17:28)
[2020-05-11] MEDS: LOSARTAN POTASSIUM 25 MG TABLET PO SCH (09:51)
[2020-05-11] MEDS ORDERED: L25 PO (10:13)
[2020-05-11 12:00] VITALS: BP 94/65
[2020-05-11 16:00] VITALS: BP 103/66
[2020-05-11 17:34] LABS: PLATELET ESTIMATE NORMAL
[2020-05-11 20:00] VITALS: BP 91/57
[2020-05-11] MEDS: ENOXAPARIN 40MG/0.4ML SYR SUBCUT SCH (21:53)
[2020-05-12 04:00] VITALS: BP 103/60
[2020-05-12] MEDS: FUROSEMIDE 40MG TABLET PO SCH (06:13)
[2020-05-12 08:00] VITALS: BP 93/60
[2020-05-12] MEDS: CARVEDILOL 3.125 MG TABLET PO SCH (09:00)
[2020-05-12] MEDS: AMLODIPINE 2.5MG TABLET PO SCH (09:00)
[2020-05-12] MEDS: LOSARTAN POTASSIUM 25 MG TABLET PO SCH (09:00)
[2020-05-12] MEDS: SPIRONOLACTONE 25MG TABLET PO SCH (09:00)
[2020-05-12] MEDS: POTASSIUM CHLORIDE 20MEQ/PACKET PO SCH (09:40)
[2020-05-12] MEDS: FAMOTIDINE 20MG TABLET PO SCH (09:40)
[2020-05-12] MEDS: DOCUSATE SODIUM 250MG CAPSULE PO SCH (09:40)
[2020-05-12 12:00] VITALS: BP 101/73
[2020-05-12 12:52] VITALS: BP 101/73
== END 2020-05-12 16:22 | disposition home or self-care (01) | DRG 133 ==
LOC: ER 13:13 → MICUSO 20:02 → UNDOADMIN 20:02 → EDBEDREQ 20:04 → EDBEDREQSVC 20:04 → EDBEDREQTM 20:04 → ENRESERV 05-03 19:24 → MICUNO 05-03 20:02 → 5WST 05-06 13:50
PROVIDERS: ADMIT Internal Medicine; ATTEND Internal Medicine
PROC: 0BH17EZ Insertion of Endotracheal Airway into Trachea, Via Natural or Artificial Opening (ICD-10-PCS; principal; 2020-05-03)
PROC: 5A1945Z Respiratory Ventilation, 24-96 Consecutive Hours (ICD-10-PCS; 2020-05-03)
PROC: 02HV33Z Insertion of Infusion Device into Superior Vena Cava, Percutaneous Approach (ICD-10-PCS; 2020-05-04)
PROC: B548ZZA Ultrasonography of Superior Vena Cava, Guidance (ICD-10-PCS; 2020-05-04)
DX: J96.01 Acute respiratory failure with hypoxia (principal); G93.41 Metabolic encephalopathy; J18.9 Pneumonia, unspecified organism; I50.23 Acute on chronic systolic (congestive) heart failure; E16.2 Hypoglycemia, unspecified; E87.1 Hypo-osmolality and hyponatremia; E87.5 Hyperkalemia; E87.8 Other disorders of electrolyte and fluid balance, not elsewhere classified; E44.1 Mild protein-calorie malnutrition; B19.20 Unspecified viral hepatitis C without hepatic coma; I08.1 Rheumatic disorders of both mitral and tricuspid valves; I11.0 Hypertensive heart disease with heart failure; F17.210 Nicotine dependence, cigarettes, uncomplicated; I42.0 Dilated cardiomyopathy; I49.3 Ventricular premature depolarization; Z59.0 Homelessness; E87.2 Acidosis; E87.6 Hypokalemia; E80.6 Other disorders of bilirubin metabolism; I27.81 Cor pulmonale (chronic); R18.8 Other ascites; F12.10 Cannabis abuse, uncomplicated; S91.311A Laceration without foreign body, right foot, initial encounter; X58.XXXA Exposure to other specified factors, initial encounter; J44.0 Chronic obstructive pulmonary disease with (acute) lower respiratory infection; F10.10 Alcohol abuse, uncomplicated; K85.90 Acute pancreatitis without necrosis or infection, unspecified; Z20.828 Contact with and (suspected) exposure to other viral communicable diseases; Z78.1 Physical restraint status; Z79.899 Other long term (current) drug therapy; Z91.19 Patient's noncompliance with other medical treatment and regimen; Z88.0 Allergy status to penicillin; Y93.89 Activity, other specified; Y92.89 Other specified places as the place of occurrence of the external cause; Y99.8 Other external cause status; Z68.1 Body mass index [BMI] 19.9 or less, adult
CPT/HCPCS: 36415; 36600; 71045; 76700; 76937; 80048; 80053; 80061; 80305; 80320; 82140; 82375; 82805; 82962; 83880; 84443; 84484; 85025; 87635; 92610; 93005; 93970; 94002; 94003; 94640; 97116; 97162; 97166; 97530; 99291; C1725; C1769; C9113; J0360; J0610; J1120; J1650; J1815; J1940; J1956; J2060; J2250; J2930; J3010; J3411; J3490; J7050; J7060; G0480